=== PATIENT | female | born 1990 | race Caucasian/White ===

== ENCOUNTER → 2016-04-26 | Outpatient (CLI) | payer OTHER ==
[2016-04-26 14:05] LABS: MEAN CORPUSCULAR HEMOGLOBIN 30.5 pg (27.0-33.0); MEAN CORPUSCULAR HGB CONC 34.1 g/dl (32.0-36.5); MEAN CORPUSCULAR VOLUME 89.5 fl (80.0-96.0); RED CELL DISTRIBUTION WIDTH 12.9 % (11.5-14.5); WHITE BLOOD COUNT 9.6 K/mm3 (4.0-10.0)
== END ==
LOC: M LAB 12:38
PROVIDERS: ATTEND Obstetrics & Gynecology
DX: O30.032 Twin pregnancy, monochorionic/diamniotic, second trimester (principal)

== ENCOUNTER → 2016-05-12 | Outpatient (CLI) | payer OTHER ==
--- NOTE | 2016-05-13 04:12 | REP ---
Clinical: Anatomical evaluation. Comparison: 03/04/2016. Findings: Examination demonstrates twin diamniotic monochorionic . motion is identified by technologist. Placenta is noted anteriorly and grade 2 without evidence for placenta previa or abruption. Amniotic fluid volume is normal. Cervix appears closed. Concordant growth is appreciated. No evidence for nuchal cord. Gestational age by LMP 30 weeks 3 days with JASON 07/18/2016 . Twin A: Fetus in cephalic presentation towards the maternal right side. Motion is appreciated. Amniotic fluid volume is subjectively normal with the deepest pocket measuring 4.8 cm. heart rate equals 155 beats per minute. Estimated weight equals 1679 grams (55th percentile). Biophysical profile score equals 8/8. Anatomical assessment demonstrates normal cranium, cavum, cerebellum/posterior fossa, lungs, diaphragm, stomach, cord insertion/three-vessel cord, kidneys/bladder and spine. Twin B: Fetus in transverse lie with head towards the maternal right side. Motion is appreciated. Amniotic fluid volume is subjectively normal with the deepest pocket measuring 3.1 cm. heart rate equals 150 beats per minute. Estimated weight equals 1636 grams (19th percentile). Biophysical profile score equals 8/8. Anatomical assessment demonstrates a normal cranium, cavum, facial features, lungs, four-chamber heart/ventricular outflow tracts, diaphragm, stomach, cord insertion/three-vessel cord, and bladder. Impression: Advanced diamniotic monochorionic twin gestation demonstrating appropriate concordant growth. No gross abnormalities are identified. Biophysical profile score equals 8/8 for age gestation. Signed by Ricky Gupta MD 05/13/2016 04:04 A
== END ==
LOC: M RAD 14:21
PROVIDERS: ATTEND Obstetrics & Gynecology
DX: Z36 Encounter for antenatal screening of mother (principal); O30.003 Twin pregnancy, unspecified number of placenta and unspecified number of amniotic sacs, third trimester; Z3A.28 28 weeks gestation of pregnancy

== ENCOUNTER → 2016-05-26 | Outpatient (CLI) | payer OTHER ==
--- NOTE | 2016-05-27 04:53 | REP ---
Clinical: Twin gestation for follow-up growth evaluation. Comparison: 05/12/2016 . Findings: Examination again demonstrates diamniotic monochorionic twin gestation. The placenta is identified anteriorly and grade III, without evidence for placenta previa or abruption. Gestational age by LMP 32 weeks 3 days with JASON 07/18/2016. Gestational age by first ultrasound 31 weeks 2 days with JASON 07/26/2016. Twin A: Fetus identified in breech presentation along the maternal left side. motion is appreciated. Amniotic fluid volume is subjectively normal with the deepest pocket measuring 4.7 cm. FHR equals 152 beats per minute. Gestational age by measurements 30 weeks 3 days. Estimated weight 1668 grams (16th percentile). Biophysical profile score equals 8/8. Umbilical cord SD ratio equals 4.12. Twin B: Presenting fetus in cephalic presentation along the maternal right side. motion is appreciated. Amniotic fluid volume is subjectively normal with the deepest pocket measuring 2.9 cm. FHR equals 125 beats per minute. Gestational age by measurements 30 weeks 2 days. Estimated weight 1538 grams (4th percentile). Biophysical profile score equals 8/8. Umbilical cord SD ratio equals 3.27. Impression: Diamniotic monochorionic twins demonstrating less than expected interval growth when compared to prior ultrasound with mild discordance in both weight and amniotic fluid. Close clinical observation is recommended. Signed by Ricky Gupta MD 05/27/2016 04:44 A
== END ==
LOC: M RAD 12:57
PROVIDERS: ATTEND Obstetrics & Gynecology
DX: O30.033 Twin pregnancy, monochorionic/diamniotic, third trimester (principal); Z36 Encounter for antenatal screening of mother; Z3A.30 30 weeks gestation of pregnancy

== ENCOUNTER → 2016-06-02 | Outpatient (CLI) | payer OTHER ==
--- NOTE | 2016-06-03 03:20 | REP ---
Clinical: Biophysical profile. Twin gestation. Comparison: 05/26/2016. Findings: Advanced diamniotic monochorionic twin gestations are again noted. Placenta is again identified anteriorly and grade II without evidence for placenta previa or abruption. Cervix appears closed and measures 2.9 cm in length. Gestational age by LMP and first ultrasound 33 weeks 3 days with estimated date of delivery 07/18/2016. TWIN A: Twin A is identified in breech presentation along the maternal left side. motion is appreciated. Amniotic fluid volume is normal and the deepest pocket measures 4.5 cm. heart rate equals 150 beats per minute. Biophysical profile score equals 6/8 (breathing - 0). Umbilical cord SD ratio equals 3.09. MCA SD ratio equals 6.02. TWIN B: Twin B is identified in cephalic presentation along the maternal right side. motion is appreciated. Amniotic fluid volume is normal and the deepest pocket measures 3.3 cm. heart rate equals 163 beats per minute. Biophysical profile score equals 8/8. Umbilical cord SD ratio equals 3.91. MCA SD ratio equals 4.08. Impression: Twin A biophysical profile score equals 6/8. Twin B biophysical profile score equals 8/8. Signed by Ricky Gupta MD 06/03/2016 03:11 A
== END ==
LOC: M RAD 12:45
PROVIDERS: ATTEND Obstetrics & Gynecology
DX: Z36 Encounter for antenatal screening of mother (principal); Z3A.33 33 weeks gestation of pregnancy

== ENCOUNTER → 2016-06-09 | Outpatient (CLI) | payer OTHER ==
--- NOTE | 2016-06-09 15:53 | REP ---
TWIN OB ULTRASOUND: Real-time sonographic evaluation of the gravid uterus is performed. There is a living diamniotic monochorionic twin gestation with estimated gestational age of 34 weeks 3 days and EDC 07/18/2016. There is concordant growth of each fetus. The placenta is anterior and grade 2. There is no previa or abruption. FETUS A: BPD 79 mm = 31 weeks 5 days, 11th percentile HC 298 mm = 33 weeks 0 days, 29th percentile AC 284 mm = 32 weeks 3 days, 20th percentile FL 63 mm = 32 weeks 4 days, 23rd percentile HC/AC ratio 1.05. Estimated weight 1981 grams, 13th percentile. heart rate 144 beats per minute. Amniotic fluid within normal limits, deepest pocket of fluid around fetus A 6.1 cm. Biophysical profile score is 8 out of 8. S/D ratio 3.51. RI 0.72. Visualized anatomy includes lateral ventricles, stomach, cord insertion, three vessel cord, kidneys, bladder, which are all grossly unremarkable. position is vertex on the maternal right side. FETUS B: BPD 77 mm = 30 weeks 6 days, less than 5th percentile HC 297 mm = 32 weeks 6 days, 27th percentile AC 291 mm = 33 weeks 1 day, 31st percentile FL 61 mm = 31 weeks 5 days, 9th percentile HC/AC ratio 1.02. Estimated weight 1977 grams, 13th percentile. heart rate 160 beats per minute. Amniotic fluid appears within normal limits with the deepest pocket of fluid around fetus B 5.1 cm. Biophysical profile score is 6 out of 8 with no points for breathing. S/D ratio 3.13. RI 0.68. Visualized anatomy includes lateral ventricles, stomach, cord insertion, three vessel cord, kidneys and bladder which are grossly unremarkable. position breech on the maternal left side. IMPRESSION: Concordant growth of twins as discussed in detail above. Biophysical profile score, fetus A 8 out of 8. Biophysical profile score of fetus B 6 out of 8 with no points for breathing. Signed by Moustapha Collado MD 06/10/2016 09:48 A
== END ==
LOC: M RAD 12:53
PROVIDERS: ATTEND Obstetrics & Gynecology
DX: O30.093 Twin pregnancy, unable to determine number of placenta and number of amniotic sacs, third trimester (principal); Z3A.34 34 weeks gestation of pregnancy

== ENCOUNTER → 2016-06-16 | Outpatient (CLI) | payer OTHER ==
--- NOTE | 2016-06-16 14:42 | REP ---
Clinical: Biophysical profile. Comparison: 06/09/2016 Findings: Advanced diamniotic monochorionic twin gestation again noted. Placenta is noted anteriorly and grade III without evidence for placenta previa or abruption and measures 5.9 cm in greatest width. Amniotic fluid volume normal. TWIN A: Cephalic presentation along the maternal right side. FHR equals 139 beats per minute. Amniotic fluid index equals 3.9 cm. (Deepest pocket) Biophysical profile score equals 6/8 (breathing-0) TWIN B: Breech presentation along the maternal left side. FHR equals 139 beats per minute. Amniotic fluid index equals 3.9 cm. (Deepest pocket) Biophysical profile score equals 6/8 (breathing-0) Impression: Biophysical profile score equals 6/8 for both fetuses. Findings as noted above. Signed by Ricky Gupta MD 06/16/2016 02:33 P
== END ==
LOC: M RAD 13:03
PROVIDERS: ATTEND Obstetrics & Gynecology
DX: Z36 Encounter for antenatal screening of mother (principal); Z3A.28 28 weeks gestation of pregnancy

== ENCOUNTER 2018-07-31 17:22 | Emergency (ER) | payer OTHER ==
[~2018-07-31] VITALS: Ht 167.6 cm; Wt 90.9 kg
[2018-07-31] MEDS ORDERED: KETO10TAB PO (20:53)
[2018-07-31] MEDS ORDERED: AMOX875T PO (20:53)
[2018-07-31 20:57] VITALS: BP 154/77
[2018-07-31] MEDS ORDERED: KETOROLAC TROMETHAMINE 10 MG TAB PO ONE (21:00)
[2018-07-31] MEDS ORDERED: AMOXICILLIN 500 MG CAP PO ONE (21:00)
== END 2018-07-31 20:59 | disposition home or self-care (01) ==
LOC: M ED 17:22
DX: K08.89 Other specified disorders of teeth and supporting structures (principal); F17.200 Nicotine dependence, unspecified, uncomplicated

== ENCOUNTER 2019-08-17 20:33 | Emergency (ER) | payer MEDICAID, OTHER, SELFPAY ==
[~2019-08-17] VITALS: Ht 167.6 cm; Wt 75.0 kg
[~2019-08-17 20:33] MED LIST: AMOX875T PO; KETO10TAB PO
[2019-08-17] MEDS ORDERED: PRENTAB9 PO (21:21)
[2019-08-17 21:38] LABS: BASO % 0.5 % (0.0-1.0); EOS # 0.1 10^3/uL (0.0-0.5); EOS % 0.9 % (0.0-3.0); HEMATOCRIT 38.4 % (36.0-47.0); HEMOGLOBIN 12.4 g/dl (12.0-15.5); LYMPH # 3.3 10^3/uL (1.5-5.0); MEAN CORPUSCULAR HEMOGLOBIN 27.7 pg (27.0-33.0); MEAN CORPUSCULAR HGB CONC 32.3 g/dl (32.0-36.5); MEAN CORPUSCULAR VOLUME 85.7 fl (80.0-96.0); MONO # 0.8 10^3/uL (0.0-0.8); MONO % 9.5 % (0.0-5.0); NEUTROPHILS # 4.6 10^3/uL (1.5-8.5); NEUTROPHILS % 51.8 % (36.0-66.0); PLATELET COUNT, AUTOMATED 362 10^3/uL (150-450); RED BLOOD COUNT 4.48 10^6/uL (4.00-5.40); WHITE BLOOD COUNT 8.8 10^3/uL (4.0-10.0)
[2019-08-17 21:47] LABS: APPEARANCE, URINE CLOUDY (CLEAR); BACTERIA, URINE AUTO NEGATIVE (NEGATIVE); BILIRUBIN, URINE AUTO NEGATIVE (NEGATIVE); BLOOD, URINE BLOOD 3+ (NEGATIVE); COLOR, URINE YELLOW (YELLOW); GLUCOSE, URINE (UA) AUTO NEGATIVE (NEGATIVE); KETONE, URINE AUTO TRACE mg/dL (NEGATIVE); LEUKOCYTE ESTERASE, URINE AUTO 2+ (NEGATIVE); MUCUS, URINE SMALL (NEGATIVE); NITRITE, URINE AUTO NEGATIVE (NEGATIVE); PROTEIN, URINE AUTO 1+ mg/dL (NEGATIVE); RBC, URINE AUTO 7 /HPF (0-3); SPECIFIC GRAVITY URINE AUTO 1.027 (1.002-1.035); SQUAMOUS EPITHELIAL CELL UR AU 4 /HPF (0-6); UROBILINOGEN, URINE AUTO 0.2 mg/dL (0.0-2.0); WBC, URINE AUTO 58 /HPF (0-3)
[2019-08-17 22:19] LABS: ALBUMIN 3.9 GM/DL (3.2-5.2); ALT/SGPT 19 U/L (12-78); BILIRUBIN,DIRECT < 0.1 MG/DL (0.0-0.2); BILIRUBIN,TOTAL 0.3 MG/DL (0.2-1.0); BLOOD UREA NITROGEN 11 MG/DL (7-18); CALCIUM LEVEL 9.5 MG/DL (8.5-10.1); CARBON DIOXIDE LEVEL 24 MEQ/L (21-32); CHLORIDE LEVEL 107 MEQ/L (98-107); CREATININE FOR GFR 0.67 MG/DL (0.55-1.30); GLOMERULAR FILTRATION RATE > 60.0 (>60); GLUCOSE, FASTING 89 MG/DL (70-100); HCG, SERUM QUANTITATIVE 20919 MIU/ML; POTASSIUM SERUM 3.8 MEQ/L (3.5-5.1); SODIUM LEVEL 139 MEQ/L (136-145); TOTAL PROTEIN 7.2 GM/DL (6.4-8.2)
--- NOTE | 2019-08-17 22:19 | REPVR ---
PROCEDURE INFORMATION: Exam: US Duplex Artery or Vein of the Abdominal and/or Reproductive Organs, Limited Ovaries Exam date and time: 08/17/2019 9:53 PM Age: 29 years old Clinical indication: 8 wks 1 day with pelvic pain and vaginal bleeding. TECHNIQUE: Imaging protocol: Real-time duplex ultrasound scan of the arterial or venous flow with burnham scale, color Doppler flow and spectral waveform analysis with image documentation. Limited duplex exam focused on the ovaries. Duplex images required to evaluate for torsion and other vascular conditions. COMPARISON: No relevant prior studies available. FINDINGS: Right adnexa: Normal duplex ultrasound of the right ovary. No torsion. Left adnexa: Normal duplex ultrasound of the left ovary. No torsion. IMPRESSION: Normal duplex of the ovaries. No evidence of ovarian torsion. PROCEDURE INFORMATION: Exam: US First Trimester, Transabdominal and US , Transvaginal Exam date and time: 08/17/2019 9:53 PM Age: 29 years old Clinical indication: 8 wks 1 day with pelvic pain and vaginal bleeding. TECHNIQUE: Imaging protocol: Real-time transabdominal obstetrical ultrasound of the maternal pelvis and a first trimester , less than 14 weeks 0 days, with image documentation. Transvaginal imaging was used for better evaluation of the fetus and adnexa. COMPARISON: No relevant prior studies available. FINDINGS: Last menstrual period: 06/21/2019 GESTATION: Gestation: There is a single intrauterine with a single gestational sac, single pole, and a 5 mm in diameter yolk sac located in the lower uterine segment. Heart rate: No cardiac activity is visualized. Placenta: Unremarkable. No subchorionic bleed. Amniotic fluid: Amniotic is normal for gestational age. BIOMETRY: Estimated gestational age by US: 7 weeks 1 day Estimated gestational age by LMP: 8 weeks 1 day [place] length: 11 mm Estimated due date by US: 04/03/2020 Estimated due date by LMP: 03/27/2020 MATERNAL: Uterus: The uterus is retroverted and measures 9.1 cm x 5.2 cm by 4.9 cm. No myometrial mass is noted. Cervix: Unremarkable. Right adnexa: The right ovary is normal in appearance. No right ovarian cyst or right adnexal mass is noted. The right ovary measures 2.6 cm x 1.5 cm x 2.1 cm. Left adnexa: The left ovary measures 4 cm x 1.9 cm x 2.3 cm and contains a 2.3 cm x 1.8 cm x 2.1 cm thick-walled left ovarian cyst, which is compatible with a corpus luteal cyst. Intraperitoneal: No intraperitoneal free fluid. IMPRESSION: demise, with a single intrauterine in the lower uterine segment with a gestational age by ultrasound of 7 weeks 1 day and no cardiac activity. Electronically signed by: Henrry Keane On 08/17/2019 22:19:09 PM
[2019-08-17 23:05] VITALS: BP 155/70
--- NOTE | 2019-08-18 08:57 | ECGEPIP ---
[facility] - ED Test Date: 2019-08-17 Pat Name: SREGEY RAY Department: Room: - Gender: Female [employer]igator: ATIF : 1990 Requested By: JANELLE ZALDIVAR Order Number: [id number] Reading MD: Jacob Easton Measurements Intervals [place] Rate: 93 P: 54 DC: 145 QRS: 73 QRSD: 94 T: 52 QT: 335 QTc: 418 Interpretive Statements SINUS RHYTHM POOR R WAVE PROGRESSION NSTTW ABNORMALITIES NO PRIORS FOR COMPARISON Electronically Signed on 08-18-2019 8:57:11 EDT by Jacob Easton
== END 2019-08-17 23:07 | disposition home or self-care (01) ==
LOC: M ED 20:33
DX: O03.9 Complete or unspecified spontaneous abortion without complication (principal); O99.411 Diseases of the circulatory system complicating pregnancy, first trimester; R01.1 Cardiac murmur, unspecified; O99.331 Smoking (tobacco) complicating pregnancy, first trimester; F17.210 Nicotine dependence, cigarettes, uncomplicated; Z79.899 Other long term (current) drug therapy

== ENCOUNTER → 2019-08-31 | Outpatient (CLI) | payer MEDICAID ==
[~2019-08-31] MED LIST changes: +PRENTAB9 PO
[2019-08-31 19:35] LABS: HEMOGLOBIN 12.6 g/dl (12.0-15.5); MEAN CORPUSCULAR HEMOGLOBIN 28.4 pg (27.0-33.0); MEAN CORPUSCULAR HGB CONC 32.3 g/dl (32.0-36.5); MEAN CORPUSCULAR VOLUME 87.8 fl (80.0-96.0); PLATELET COUNT, AUTOMATED 400 10^3/uL (150-450); RED BLOOD COUNT 4.44 10^6/uL (4.00-5.40); WHITE BLOOD COUNT 7.7 10^3/uL (4.0-10.0)
[2019-08-31 19:38] LABS: APPEARANCE, URINE CLEAR (CLEAR); BACTERIA, URINE AUTO NEGATIVE (NEGATIVE); BILIRUBIN, URINE AUTO NEGATIVE (NEGATIVE); BLOOD, URINE BLOOD 3+ (NEGATIVE); COLOR, URINE STRAW (YELLOW); GLUCOSE, URINE (UA) AUTO NEGATIVE (NEGATIVE); KETONE, URINE AUTO NEGATIVE (NEGATIVE); LEUKOCYTE ESTERASE, URINE AUTO 2+ (NEGATIVE); NITRITE, URINE AUTO NEGATIVE (NEGATIVE); PROTEIN, URINE AUTO NEGATIVE (NEGATIVE); RBC, URINE AUTO 5 /HPF (0-3); SPECIFIC GRAVITY URINE AUTO 1.002 (1.002-1.035); SQUAMOUS EPITHELIAL CELL UR AU 0 /HPF (0-6); UROBILINOGEN, URINE AUTO 0.2 mg/dL (0.0-2.0); WBC, URINE AUTO 9 /HPF (0-3)
[2019-08-31 19:46] LABS: INR 1.06; PROTHROMBIN TIME 13.5 SECONDS (11.8-14.0)
[2019-08-31 20:07] LABS: ALBUMIN 4.3 GM/DL (3.2-5.2); ALT/SGPT 19 U/L (12-78); BILIRUBIN,TOTAL 0.5 MG/DL (0.2-1.0); BLOOD UREA NITROGEN 8 MG/DL (7-18); CARBON DIOXIDE LEVEL 25 MEQ/L (21-32); CHLORIDE LEVEL 107 MEQ/L (98-107); CREATININE FOR GFR 0.74 MG/DL (0.55-1.30); GLOMERULAR FILTRATION RATE > 60.0 (>60); GLUCOSE, FASTING 69 MG/DL (70-100); HCG, SERUM QUANTITATIVE 4988 MIU/ML; POTASSIUM SERUM 4.2 MEQ/L (3.5-5.1); SODIUM LEVEL 140 MEQ/L (136-145); TOTAL PROTEIN 7.6 GM/DL (6.4-8.2)
== END ==
LOC: M WUC 15:45
PROVIDERS: ATTEND Obstetrics & Gynecology
DX: O02.1 Missed abortion (principal)

== ENCOUNTER 2021-02-01 14:40 | Emergency (ER) | payer OTHER ==
[~2021-02-01] VITALS: Ht 167.6 cm; Wt 84.7 kg
[2021-02-01 15:45] LABS: BASO % 0.6 % (0.0-1.0); EOS % 0.6 % (0.0-3.0); HEMATOCRIT 42.8 % (36.0-47.0); HEMOGLOBIN 13.8 g/dl (12.0-15.5); LYMPH # 1.6 10^3/uL (1.5-5.0); LYMPH % 21.8 % (24.0-44.0); MEAN CORPUSCULAR HEMOGLOBIN 28.5 pg (27.0-33.0); MEAN CORPUSCULAR HGB CONC 32.2 g/dl (32.0-36.5); MEAN CORPUSCULAR VOLUME 88.4 fl (80.0-96.0); MONO # 0.7 10^3/uL (0.0-0.8); MONO % 9.7 % (2.0-8.0); NEUTROPHILS # 4.8 10^3/uL (1.5-8.5); PLATELET COUNT, AUTOMATED 326 10^3/uL (150-450); RED BLOOD COUNT 4.84 10^6/uL (4.00-5.40); WHITE BLOOD COUNT 7.1 10^3/uL (4.0-10.0)
[2021-02-01] MEDS ORDERED: dexameTHASONE 20MG/5ML VIAL (J1100 PER 1MG) IV ONE (15:55)
[2021-02-01] MEDS ORDERED: AMPICILLIN SOD/SULBACTAM SOD 3 GM in D5W MINI-BAG PLUS 100 ML IV ONE (15:55)
[2021-02-01] MEDS ORDERED: ISOVUE-370 76% 100ML VIAL As Ordered ONE (16:00)
[2021-02-01 16:04] LABS: ERYTHROCYTE SEDIMENTATION RATE 8 mm/hr (0-20)
--- NOTE | 2021-02-01 16:27 | REP ---
INDICATION: severe swelling tenderness R mandib, broken tooth #30 COMPARISON: None. TECHNIQUE: Axial contrast-enhanced images through the facial bones to include the mandible with coronal and sagittal re-formations using 75 cc Isovue 370 intravenous contrast material. FINDINGS: Moderate to significant soft tissue swelling and subtle phlegmonous changes overlie the right side of the mandibular body with decreased inflammatory changes extending superiorly over the right maxillary region. No drainable collection is identified. Findings may be secondary to orthodontic infectious/inflammatory process of the adjacent premolars. The mandible itself as well as the maxilla and remainder of the osseous structures appear intact. The sinuses are clear. The oral cavity itself deep to the mandible including oropharynx and hypopharynx are normal. The airway is maintained. IMPRESSION: Swelling and phlegmonous inflammatory changes primarily overlying the right mandibular body centered at suspected dental irregularities involving the pre molars and correlation with underlying acute dental process is recommended. No drainable collection/abscess. <Electronically signed by Ricky Gupta > 02/01/21 [id number]
[2021-02-01] MEDS ORDERED: AUGM875T28 PO (16:36)
[2021-02-01] MEDS ORDERED: DECA4TAB PO (16:36)
[2021-02-01] MEDS ORDERED: PERI0.126 PO (16:36)
[2021-02-01 17:26] VITALS: BP 126/58
== END 2021-02-01 17:29 | disposition home or self-care (01) ==
LOC: M ED 14:40
DX: K03.81 Cracked tooth (principal); K08.89 Other specified disorders of teeth and supporting structures; F17.200 Nicotine dependence, unspecified, uncomplicated
CPT/HCPCS: 70487; 80047; 84702; 85025; 85652; 86140; 87040; 96365; 96375; 99283; J1100; Q9967